=== PATIENT | male | born 1935 | race Caucasian/White ===

== ENCOUNTER → 2018-12-06 | Outpatient (CLI) | payer MEDICARE, OTHER ==
[~2018-12-06] MED LIST: ASPI81TA45 PO; ATOR-2 PO; ATOR10TA PO; CALC-43 PO; CARV3.1212 PO; ENAL5TAB PO; MULT-257 PO; PANT20TA2 PO; TICA90TA PO
== END | disposition home or self-care (01) ==
LOC: CFH 08:52
PROVIDERS: ATTEND Internal Medicine Cardiovascular Disease
DX: I08.3 Combined rheumatic disorders of mitral, aortic and tricuspid valves (principal); I37.1 Nonrheumatic pulmonary valve insufficiency; I10 Essential (primary) hypertension; I25.2 Old myocardial infarction; E78.5 Hyperlipidemia, unspecified; Z95.1 Presence of aortocoronary bypass graft
CPT/HCPCS: 93306

== ENCOUNTER 2019-07-30 07:48 | Outpatient (CLI) | payer MEDICARE, OTHER ==
[~2019-07-30 07:48] MED LIST changes: +REGADENOSON 0.4 MG/5 ML SYRINGE ONE
== END 2019-07-30 23:59 | disposition home or self-care (01) ==
LOC: CFH 07:48
PROVIDERS: ATTEND Registered Nurse
DX: I34.0 Nonrheumatic mitral (valve) insufficiency (principal); I25.10 Atherosclerotic heart disease of native coronary artery without angina pectoris
CPT/HCPCS: 78452; 93017; A9502; J2785